=== PATIENT | male | born 1955 | race Caucasian/White ===

== ENCOUNTER → 2016-12-30 | Outpatient (CLI) | payer MEDICAID ==
[~2016-12-30] MED LIST: ALBU8.5H5; AMLO5TAB2; ATOR10TA9; CIPR500T87 PO; DIAZ5TAB4; DOCU100C8; FLUO40CR; FLUT1DIS5; GUAI5LIQ; HYDR12.58 PO; HYDR1POW19; MORP15TA17; OXYC10TA6 PO; PRED1POW2 PO; [UNRECOGNIZED DRUG - CODE]
== END | disposition home or self-care (01) ==
LOC: ROC 10:16
PROVIDERS: ATTEND Radiology Radiation Oncology
DX: Z08 Encounter for follow-up examination after completed treatment for malignant neoplasm (principal); C61 Malignant neoplasm of prostate; B19.20 Unspecified viral hepatitis C without hepatic coma
CPT/HCPCS: 99213; G0463

== ENCOUNTER → 2017-01-03 | Outpatient (CLI) | payer MEDICAID | END | disposition home or self-care (01) | LOC: PETCFH 10:02 | PROVIDERS: ATTEND Radiology Radiation Oncology | DX: M17.0 Bilateral primary osteoarthritis of knee (principal); M19.012 Primary osteoarthritis, left shoulder; M19.011 Primary osteoarthritis, right shoulder; M47.899 Other spondylosis, site unspecified; C61 Malignant neoplasm of prostate | CPT/HCPCS: 78306; A9503 ==

== ENCOUNTER 2017-02-26 11:24 | Emergency (ER) | payer MEDICAID ==
[~2017-02-26] VITALS: Ht 180.3 cm; Wt 104.2 kg
[~2017-02-26 11:24] MED LIST changes: +DOCU100C33; -DOCU100C8
[2017-02-26] MEDS ORDERED: ALBU6.7H INH (12:20)
[2017-02-26] MEDS ORDERED: ALBUTEROL/IPRATROPIUM 2.5MG/0.5MG, 3 ML NPPB ONE (13:00)
[2017-02-26 13:49] VITALS: BP 137/75
== END 2017-02-26 13:56 | disposition home or self-care (01) ==
LOC: ED 13:50
DX: J44.1 Chronic obstructive pulmonary disease with (acute) exacerbation (principal); J01.10 Acute frontal sinusitis, unspecified; J01.01 Acute recurrent maxillary sinusitis; E78.00 Pure hypercholesterolemia, unspecified; I10 Essential (primary) hypertension; C61 Malignant neoplasm of prostate; Z87.891 Personal history of nicotine dependence
CPT/HCPCS: 71020; 93005; 94640; 99284; J7620

== ENCOUNTER → 2017-05-19 | Outpatient (CLI) | payer MEDICAID ==
[~2017-05-19] MED LIST changes: +ALBU6.7H INH; +POTA20PA PO
== END | disposition home or self-care (01) ==
LOC: ROC 09:07
PROVIDERS: ATTEND Radiology Radiation Oncology
DX: Z08 Encounter for follow-up examination after completed treatment for malignant neoplasm (principal); C61 Malignant neoplasm of prostate; B19.20 Unspecified viral hepatitis C without hepatic coma; G89.29 Other chronic pain; M54.5 Low back pain; F11.90 Opioid use, unspecified, uncomplicated
CPT/HCPCS: 99212; G0463

== ENCOUNTER → 2018-05-18 | Outpatient (CLI) | payer MEDICAID ==
[~2018-05-18] MED LIST changes: +AMLO-150; -AMLO5TAB2; -HYDR12.58 PO; +HYDROCHLOROTH12.5 MG PO; +LEUPROLIDE 22.5MG SYRINGE KIT ONE; -POTA20PA PO; +POTA20PA31 PO
== END | disposition home or self-care (01) ==
LOC: ROC 08:45
PROVIDERS: ATTEND Radiology Radiation Oncology
DX: Z08 Encounter for follow-up examination after completed treatment for malignant neoplasm (principal); C61 Malignant neoplasm of prostate; B18.2 Chronic viral hepatitis C; M54.9 Dorsalgia, unspecified; G89.29 Other chronic pain
CPT/HCPCS: 96402; 99213; J9217; G0463

== ENCOUNTER 2018-08-31 09:08 | Outpatient (CLI) | payer MEDICAID ==
[~2018-08-31 09:08] MED LIST changes: -LEUPROLIDE 22.5MG SYRINGE KIT ONE
[2018-08-31] MEDS ORDERED: LEUPROLIDE 22.5MG SYRINGE KIT ONE ×2 (10:30)
== END 2018-08-31 23:59 | disposition home or self-care (01) ==
LOC: ROC 09:08
PROVIDERS: ATTEND Radiology Radiation Oncology
DX: Z51.11 Encounter for antineoplastic chemotherapy (principal); C61 Malignant neoplasm of prostate; B19.20 Unspecified viral hepatitis C without hepatic coma; G89.29 Other chronic pain; M54.9 Dorsalgia, unspecified
CPT/HCPCS: 96402; 99212; J9217; G0463

== ENCOUNTER → 2018-12-09 | Outpatient (CLI) | payer MEDICAID | END | disposition home or self-care (01) | LOC: ROC 10:01 | PROVIDERS: ATTEND Radiology Radiation Oncology | DX: Z08 Encounter for follow-up examination after completed treatment for malignant neoplasm (principal); C61 Malignant neoplasm of prostate; Z79.899 Other long term (current) drug therapy; Z91.041 Radiographic dye allergy status | CPT/HCPCS: 99212; G0463 ==

== ENCOUNTER → 2019-07-12 | Outpatient (CLI) | payer MEDICAID ==
[~2019-07-12] MED LIST changes: -ALBU6.7H INH; +ALBU6.7H8 INH
== END | disposition home or self-care (01) ==
LOC: ROC 08:13
PROVIDERS: ATTEND Radiology Radiation Oncology
DX: C61 Malignant neoplasm of prostate (principal); J44.9 Chronic obstructive pulmonary disease, unspecified; Z88.1 Allergy status to other antibiotic agents
CPT/HCPCS: 99213; G0463

== ENCOUNTER 2019-08-16 09:35 | Outpatient (CLI) | payer MEDICAID | END 2019-08-16 23:59 | disposition home or self-care (01) | LOC: ROC 09:35 | PROVIDERS: ATTEND Radiology Radiation Oncology | DX: C61 Malignant neoplasm of prostate (principal); M54.9 Dorsalgia, unspecified; J44.9 Chronic obstructive pulmonary disease, unspecified | CPT/HCPCS: 99212; G0463 ==

== ENCOUNTER 2019-08-24 08:07 | Outpatient (CLI) | payer MEDICAID | END 2019-08-24 23:59 | disposition home or self-care (01) | LOC: ROC 08:07 | PROVIDERS: ATTEND Radiology Radiation Oncology | DX: Z02.9 Encounter for administrative examinations, unspecified (principal) ==

== ENCOUNTER 2019-10-25 09:28 | Outpatient (CLI) | payer MEDICAID ==
[2019-10-25] MEDS ORDERED: LEUPROLIDE (ELIGARD) 22.5 MG SYR SQ ONE (13:15)
== END 2019-10-25 23:59 | disposition home or self-care (01) ==
LOC: ROC 09:28
PROVIDERS: ATTEND Radiology Radiation Oncology
DX: C61 Malignant neoplasm of prostate (principal)
CPT/HCPCS: 96402; J9217

== ENCOUNTER → 2020-01-27 | Outpatient (CLI) | payer MEDICAID ==
[~2020-01-27] MED LIST changes: +LEUPROLIDE (ELIGARD) 22.5 MG SYR SQ ONE
== END | disposition home or self-care (01) ==
LOC: ROC 01-24 07:44
PROVIDERS: ATTEND Radiology Radiation Oncology
DX: Z51.11 Encounter for antineoplastic chemotherapy (principal); C61 Malignant neoplasm of prostate
CPT/HCPCS: 96402; J9217

== ENCOUNTER → 2020-04-24 | Outpatient (CLI) | payer MEDICAID ==
[~2020-04-24] MED LIST changes: -LEUPROLIDE (ELIGARD) 22.5 MG SYR SQ ONE
== END | disposition home or self-care (01) ==
LOC: ROC 08:12
PROVIDERS: ATTEND Radiology Radiation Oncology
DX: C61 Malignant neoplasm of prostate (principal)
CPT/HCPCS: 99441

== ENCOUNTER → 2020-05-02 | Outpatient (CLI) | payer MEDICAID ==
[~2020-05-02] MED LIST changes: +LEUPROLIDE (ELIGARD) 22.5 MG SYR SQ ONE
== END | disposition home or self-care (01) ==
LOC: ROC 07:56
PROVIDERS: ATTEND Radiology Radiation Oncology
DX: C61 Malignant neoplasm of prostate (principal); Z51.11 Encounter for antineoplastic chemotherapy
CPT/HCPCS: 96402; J9217

== ENCOUNTER → 2020-10-17 | Outpatient (CLI) | payer MEDICAID | END | disposition home or self-care (01) | LOC: ROC 07:10 | PROVIDERS: ATTEND Radiology Radiation Oncology | DX: Z51.11 Encounter for antineoplastic chemotherapy (principal); C61 Malignant neoplasm of prostate | CPT/HCPCS: 96402; J9217 ==

== ENCOUNTER 2021-01-23 08:36 | Outpatient (CLI) | payer MEDICARE, MEDICAID ==
[~2021-01-23 08:36] MED LIST changes: -LEUPROLIDE (ELIGARD) 22.5 MG SYR SQ ONE
== END 2021-01-23 23:59 | disposition home or self-care (01) ==
LOC: ROC 08:36
PROVIDERS: ATTEND Radiology Radiation Oncology
DX: Z51.11 Encounter for antineoplastic chemotherapy (principal); C61 Malignant neoplasm of prostate
CPT/HCPCS: 96402; J9217